=== PATIENT | male | born 1950 | race Caucasian/White ===

== ENCOUNTER 2017-07-30 10:20 | Outpatient (CLI) | payer MEDICARE ==
--- NOTE | 2017-07-30 12:38 | ULT ---
ULTRASOUND ABDOMINAL AORTA: HISTORY: Screening for abdominal aortic aneurysm. FINDINGS: The exam was limited due to the presence of bowel gas. The maximum AP dimension of the abdominal aor ta is 1.8 cm in its proximal aspect. IMPRESSION: No evidence of abdominal aortic aneurysm. POS: [facility]
== END 2017-07-30 10:21 | disposition home or self-care (01) ==
LOC: ULT 10:20
PROVIDERS: ATTEND Family Medicine
DX: Z13.6 Encounter for screening for cardiovascular disorders (principal); Z00.00 Encounter for general adult medical examination without abnormal findings
CPT/HCPCS: 76775

== ENCOUNTER 2018-01-01 19:30 | Outpatient (CLI) | payer MEDICARE | END 2018-01-01 19:31 | disposition home or self-care (01) | LOC: SLEEPLAB 19:30 | PROVIDERS: ATTEND Family Medicine | DX: G47.33 Obstructive sleep apnea (adult) (pediatric) (principal); R53.83 Other fatigue; R35.1 Nocturia; N18.9 Chronic kidney disease, unspecified | CPT/HCPCS: 95811 ==

== ENCOUNTER 2022-08-30 08:12 | Outpatient (CLI) | payer MEDICARE ==
[2022-08-30] MEDS ORDERED: Magnevist 469MG/ML 20 ML VIAL ONE (15:51)
== END 2022-08-30 08:13 | disposition home or self-care (01) ==
LOC: TBSIIMAG 08:12
PROVIDERS: ATTEND Urology
DX: R97.20 Elevated prostate specific antigen [PSA] (principal)
CPT/HCPCS: 72197; A9579